=== PATIENT | female | born 1970 | race Hispanic/Latino ===

== ENCOUNTER 2019-01-27 22:15 | Emergency (ER) | payer MEDICARE ==
[2019-01-27 22:29] VITALS: RESP 18; O2SAT 98
[2019-01-27] MEDS ORDERED: Piperacillin/Tazobact 3.375 GM in Sodium Chloride 0.9% 100 ML IV STA (23:05)
[2019-01-27] MEDS ORDERED: Piperacillin/Tazobact 3.375 gm Inj IVPB ONE (23:17)
--- NOTE | 2019-01-27 23:51 | ED PDOC ---
History of Present Illness History of Present Illness: 48 year old female with a history of lupus, abscesses and depression presents to the ED for evaluation of flu like symptoms and an abscess to the posterior region of her neck increasing in size over the last two weeks. Patient complains of cough and generalized malaise. She is taking Bactrim without relief of symptoms. Denies fever and chills. PMD: none provided HPI: Influenza Time Seen by Provider: 01/27/19 22:41 Chief Complaint: Cough, Cold, Congestion Chief Complaint (Provider): Cough, Cold, Congestion History Per: Patient Exam Limitations: no limitations Onset/Duration Of Symptoms: Days (x 2 weeks) Symptoms include: cough, other (generalized malaise). denies: fever Past Medical History Reviewed: Historical Data, Nursing Documentation, Vital Signs Vital Signs: Last Vital Signs Temp 98.6 F 01/27/19 22:28 Pulse 90 01/27/19 22:28 Resp 18 01/27/19 22:28 BP 107/71 01/27/19 22:28 Pulse Ox 98 01/27/19 22:28 Primary Care Provider: Non [facility] Provider, - Medical History PMH: Depression Other PMH: lupus - Surgical History Surgical History: No Surg Hx - Family History Family History: States: Unknown Family Hx - Living Arrangements Living Arrangements: Other (homeless) - Social History Current smoker - smoking cessation education provided: No Alcohol: None Drugs: Denies - Home Medications Home Medications: Ambulatory Orders Medication Instructions Recorded Amoxicillin/Clavulanate [Augmentin 1 tab PO BID #20 tab 01/28/19 875 MG-125 MG] - Allergies Allergies/Adverse Reactions: Allergies Allergy/AdvReac Type Severity Reaction Status Date / Time No Known Allergies Allergy Verified 01/27/19 22:26 Review of Systems ROS Statement: Except As Marked, All Systems Reviewed And Found Negative Constitutional: Positive for: Malaise. Negative for: Fever, Chills ENT: Positive for: Other (abscess to the posterior neck) Respiratory: Positive for: Cough Physical Exam - Reviewed Nursing Documentation Reviewed: Yes Vital Signs Reviewed: Yes - Physical Exam Appears: Positive for: No Acute Distress Head Exam: Positive for: ATRAUMATIC, NORMAL INSPECTION, NORMOCEPHALIC Skin: Positive for: Normal Color, Warm, Dry Eye Exam: Positive for: EOMI, Normal appearance, PERRL Neck: Negative for: Normal ((+) 6x5 cm erythematous abscess to posterior neck with fluctuance; no induration) Cardiovascular/Chest: Positive for: Regular Rate, Rhythm. Negative for: Murmur Respiratory: Positive for: Normal Breath Sounds. Negative for: Respiratory Distress Gastrointestinal/Abdominal: Positive for: Normal Exam, Soft. Negative for: Tenderness, Mass, Guarding Back: Positive for: Normal Inspection. Negative for: L CVA Tenderness, R CVA Tenderness Extremity: Positive for: Normal ROM (x 4). Negative for: Deformity Neurological/Psych: Positive for: Awake, Alert, Normal Tone, Oriented (x 3). Negative for: Motor/Sensory Deficits Medical Decision Making Medical Decision Makin:05 Impression: 48 year old female with flu- like symptoms as well as an abscess Initial Plan: --CMP --CBC --CXR --Lactic acid --Zosyn 3.375 gm in NS 100 ml IV --Blood cx --Wound cx --influenza AB --UA Patient tolerated incision and drainage of abscess well. 04:08 Patient advised to continue Bactrim use. Follow up with PMD Dr. Mcnamara in [place]. Patient will be discharged with a prescription for Augmentin. Diagnosis is cutaneous abscess of the neck. Advised patient to return in 2-3 days. Scribe Attestation: Documented by Beena Paredes, acting as a scribe for Spencer Delarosa MD Provider Scribe Attestation: All medical record entries made by the Scribe were at my direction and personally dictated by me. I have reviewed the chart and agree that the record accurately reflects my personal performance of the history, physical exam, medical decision making, and the department course for this patient. I have also personally directed, reviewed, and agree with the discharge instructions and disposition - Laboratory Results Result Diagrams: 01/27/19 23:52 01/27/19 23:52 - ECG O2 Sat by Pulse Oximetry: 98 Disposition - Clinical Impression Clinical Impression: Abscess - Patient ED Disposition Is Patient to be Admitted: No - Disposition Disposition: Routine/Home Disposition Time: 04:10 Condition: STABLE Prescriptions: Amoxicillin/Clavulanate [Augmentin 875 MG-125 MG] 1 tab PO BID #20 tab Instructions: Skin Abscess, Abscess Incision and Drainage Forms: [employer] (Turkish) - Incision & Drainage Of Abscess Procedure: Incised W/Scalpel Blade#: (11; 2 cm incision), Drained Pus (20 ccs of congealed purulent material removed), Packed W/Gauze (iodoform gauze)
[2019-01-27 23:56] LABS: BASO % 0.6 % (0.0-2.0); EOS # 0.1 K/uL (0.0-0.7); EOS % 1.2 % (0.0-4.0); HEMOGLOBIN 11.9 g/dL (12.0-16.0); LYMPH # 2.4 K/uL (1.0-4.3); LYMPH % 32.9 % (20.0-40.0); MEAN CELL VOLUME 92.8 fl (81.0-99.0); MEAN CORPUSCULAR HEMOGLOBIN 30.3 pg (27.0-31.0); MEAN CORPUSCULAR HGB CONC 32.7 g/dL (33.0-37.0); MEAN PLATELET VOLUME 7.8 fl (7.2-11.7); MONO # 0.7 K/uL (0.0-0.8); MONO % 9.2 % (0.0-10.0); NEUT % 56.1 % (50.0-75.0); RBC 3.91 Mil/uL (3.80-5.20); RED CELL DISTRIBUTION WIDTH 13.9 % (11.5-14.5); WHITE BLOOD COUNT 7.2 K/uL (4.8-10.8)
[2019-01-28 00:04] LABS: ALB/GLOB RATIO 1.4 (1.0-2.1); ALBUMIN 3.8 g/dL (3.5-5.0); ALT/SGPT 27 U/L (9-52); AST/SGOT 28 U/L (14-36); BLOOD UREA NITROGEN 18 mg/dl (7-17); CALCIUM 8.9 mg/dL (8.4-10.2); GFR NON-AFRICAN AMERICAN > 60
[2019-01-28 00:12] LABS: URINE BILIRUBIN NEGATIVE (NEGATIVE); URINE BLOOD NEGATIVE (NEGATIVE); URINE CLARITY SLIGHT-CLOUDY (Clear); URINE COLOR YELLOW (YELLOW); URINE GLUCOSE (UA) NEGATIVE (NEGATIVE); URINE PROTEIN NEGATIVE (NEGATIVE)
[2019-01-28 00:13] LABS: SQUAMOUS EPITHIAL 3 /hpf (0-5); URINE BACTERIA RARE (<OCC); URINE LEUKOCYTE ESTERASE MODERATE Leu/uL (Negative); URINE UROBILINOGEN 0.2 mg/dL (0.2-1.0)
[2019-01-28] MEDS ORDERED: Povidone Iodine Topical 10% Sol ONE (01:04)
[2019-01-28 06:43] VITALS: BP 114/83; PULSE 81; TEMP 98.2
--- NOTE | 2019-01-28 13:47 | RAD ---
Date of service: 01/27/2019 HISTORY: Cough COMPARISON: No prior. TECHNIQUE: Chest PA and lateral FINDINGS: LINES AND TUBES: None. LUNG AND PLEURA: The lungs are well inflated and clear. No pleural effusion or pneumothorax. HEART AND MEDIASTINUM: The heart is not enlarged. No aortic atherosclerotic calcifications present. The hilar and mediastinal contours are within normal limits. SKELETAL STRUCTURES: The bony structures are within normal limits for the patient's age. VISUALIZED UPPER ABDOMEN: Normal. OTHER FINDINGS: Surgical clips in the right upper quadrant are related to prior cholecystectomy. IMPRESSION: No active pulmonary disease.
== END 2019-01-28 06:51 | disposition home or self-care (01) ==
LOC: H.ER 22:15
DX: L02.11 Cutaneous abscess of neck (principal); M32.9 Systemic lupus erythematosus, unspecified; Z86.59 Personal history of other mental and behavioral disorders
CPT/HCPCS: 10060; 71046; 80053; 81003; 81025; 83605; 85025; 87040; 87070; 87804; 96360; 99282; J2543